=== PATIENT | female | born 1980 | race Caucasian/White ===

== ENCOUNTER → 2021-11-07 10:09 | Outpatient (REF) | payer OTHER, SELFPAY | LOC: ANHLAB 10:09 | PROVIDERS: Visit Provider Nurse Practitioner | DX: L72.11 Pilar cyst (principal); D22.71 Melanocytic nevi of right lower limb, including hip | CPT/HCPCS: 88304; 88305 ==

== ENCOUNTER 2022-11-13 17:19 | Outpatient (NON) | payer OTHER, SELFPAY | END 2022-11-13 17:20 | disposition home or self-care (01) | LOC: ANHLAB 11-14 17:21 | PROVIDERS: Visit Provider Nurse Practitioner | DX: L81.4 Other melanin hyperpigmentation (principal) | CPT/HCPCS: 88305 ==

== ENCOUNTER 2023-05-21 09:00 | Outpatient (NON) | payer OTHER, SELFPAY | END 2023-05-21 09:01 | disposition home or self-care (01) | LOC: ANHLAB 05-22 14:36 | PROVIDERS: Visit Provider Nurse Practitioner | DX: D22.71 Melanocytic nevi of right lower limb, including hip (principal) | CPT/HCPCS: 88305 ==